=== PATIENT | male | born 1940 | race Caucasian/White ===

== ENCOUNTER → 2017-05-21 | Outpatient (CLI) | payer OTHER | LOC: RAD 08:30 | DX: M62.08 Separation of muscle (nontraumatic), other site (principal); K57.30 Diverticulosis of large intestine without perforation or abscess without bleeding; I25.10 Atherosclerotic heart disease of native coronary artery without angina pectoris; M16.0 Bilateral primary osteoarthritis of hip | CPT/HCPCS: 74176 ==

== ENCOUNTER 2017-10-06 03:49 | Inpatient (IN) | payer OTHER ==
[~2017-10-06] VITALS: Ht 167.6 cm; Wt 122.6 kg
[2017-10-06 04:30] LABS: HEMOGLOBIN 9.3 G/DL (12.5-16.6); MCH 28.2 PG (29.0-34.0); MCV 90.9 FL (86-99); PLATELET COUNT 185 K/uL (156-360); RBC DIS.WIDTH-SD 47.1 % (39-53); WHITE BLOOD COUNT 7.1 K/uL (4.1-10.2)
[2017-10-06 04:42] LABS: ALBUMIN 3.4 g/dL (3.2-4.8); CHLORIDE 99 mEq/L (99-109); POTASSIUM 3.8 mEq/L (3.7-5.4); SODIUM 138 mEq/L (136-147)
[2017-10-06 04:44] LABS: GLUCOSE 120 mg/dL (70-99)
[2017-10-06 04:45] LABS: TOTAL PROTEIN 6.4 g/dL (6.4-8.3)
[2017-10-06 04:46] LABS: TOTAL BILIRUBIN 0.5 mg/dL (0.0-1.0)
[2017-10-06 04:48] LABS: ALKALINE PHOSPHATASE 40 IU/L (3-129); CREATININE 1.6 mg/dL (0.6-1.3); GFR ESTIMATE (CALCULATED) 45 mL/min/ (58.99-99999)
[2017-10-06 04:49] LABS: UREA NITROGEN (BUN) 17 mg/dL (9-23)
[2017-10-06 04:50] LABS: AST (GOT) 11 IU/L (2-34)
[2017-10-06 04:51] LABS: ALT (GPT) 7 IU/L (3-49)
[2017-10-06 04:52] LABS: LIPASE 4 U/L (1.0-51.0); TROP-I INTERPRETATION NEGATIVE; TROPONIN-I 0.03 ng/mL (0.0-0.30)
[2017-10-06 10:40] LABS: TROP-I INTERPRETATION NEGATIVE; TROPONIN-I 0.02 ng/mL (0.0-0.30)
[2017-10-06] MEDS ORDERED: AMLODIPINE BESYL5 MG PO (12:05)
[2017-10-06] MEDS ORDERED: CYANOCOBALAM1000 MCG PO (12:06)
[2017-10-06] MEDS ORDERED: ASPIR-TRIN325 M1 PO (12:06)
[2017-10-06] MEDS ORDERED: FEOSOL325 MG PO (12:07)
[2017-10-06] MEDS ORDERED: FLEXI JOINT TA1 EACH PO (12:08)
[2017-10-06] MEDS ORDERED: FUROSEMIDE20 MG PO (12:08)
[2017-10-06] MEDS ORDERED: LASIX40 MG PO (12:09)
[2017-10-06] MEDS ORDERED: LASIX20 MG PO (12:10)
[2017-10-06] MEDS ORDERED: INCRUSE ELLI62.5 MCG IH (12:10)
[2017-10-06] MEDS ORDERED: LASIX40 MG/4 ML IM (12:12)
[2017-10-06] MEDS ORDERED: LOSARTAN POTASS50 MG PO (12:13)
[2017-10-06] MEDS ORDERED: LEXAPRO10 MG PO (12:13)
[2017-10-06] MEDS ORDERED: KLOR-CON M2020 MEQ PO (12:13)
[2017-10-06] MEDS ORDERED: POTASSIUM-9999 MG PO (12:14)
[2017-10-06] MEDS ORDERED: ADVAIR 250/501 DISK IH (12:14)
[2017-10-06] MEDS ORDERED: SENNA PLUS TAB1 EACH PO (12:15)
[2017-10-06] MEDS ORDERED: ATORVASTATIN CA10 MG PO (12:15)
[2017-10-06] MEDS ORDERED: PAIN RELIEVING TP (12:17)
[2017-10-06] MEDS ORDERED: DUONEB 2.5-0.5 M3 ML AEROSOL (12:18)
[2017-10-06] MEDS ORDERED: GERI-TUSSI100 MG/5 M PO (12:19)
[2017-10-06] MEDS ORDERED: FURO40I IM (12:20)
[2017-10-06 12:59] VITALS: BP 146/79
[2017-10-06 16:34] VITALS: BP 154/69
[2017-10-06 16:43] LABS: TROP-I INTERPRETATION NEGATIVE; TROPONIN-I 0.03 ng/mL (0.0-0.30)
[2017-10-06 19:25] VITALS: BP 128/76
[2017-10-07 00:27] VITALS: BP 127/69
[2017-10-07 05:08] VITALS: BP 144/74
[2017-10-07 08:30] VITALS: BP 127/66
[2017-10-07 09:09] LABS: CHLORIDE 98 mEq/L (99-109); POTASSIUM 4.5 mEq/L (3.7-5.4); SODIUM 137 mEq/L (136-147)
[2017-10-07 09:11] LABS: GLUCOSE 98 mg/dL (70-99)
[2017-10-07 09:14] LABS: CREATININE 1.4 mg/dL (0.6-1.3); GFR ESTIMATE (CALCULATED) 52 mL/min/ (58.99-99999)
[2017-10-07 09:15] LABS: UREA NITROGEN (BUN) 17 mg/dL (9-23)
[2017-10-07 11:55] VITALS: BP 138/66
[2017-10-07 15:46] VITALS: BP 138/71
[2017-10-07 19:00] VITALS: BP 133/65
[2017-10-08 00:29] VITALS: BP 128/66
[2017-10-08 05:07] VITALS: BP 117/62
[2017-10-08] MEDS ORDERED: LASIX20 MG PO (11:06)
[2017-10-08] MEDS ORDERED: PREDNISONE10 MG PO (11:11)
[2017-10-08] MEDS ORDERED: PREDNISONE50 MG PO (11:11)
[2017-10-08] MEDS ORDERED: PREDNISONE20 MG PO (11:11)
[2017-10-08 11:20] VITALS: BP 119/58
[2017-10-08 15:40] VITALS: BP 132/65
[2017-10-08 19:15] VITALS: BP 136/68
[2017-10-09] VITALS: BP 134/79
[2017-10-09 04:00] VITALS: BP 133/85
[2017-10-09 07:00] VITALS: BP 108/71
== END 2017-10-09 12:51 | DRG 308 ==
LOC: EME → EDBD 03:49 → EME 03:49 → EDOF 07:24 → ENRESERV 07:26 → 4SOUTH 12:44 → ENPENDDIS 10-09 11:47 → 4SOUTH 10-09 12:51
PROVIDERS: Emergency Medicine; Family Medicine; Nurse Practitioner Family
DX: I44.1 Atrioventricular block, second degree (principal); R07.89 Other chest pain; J96.00 Acute respiratory failure, unspecified whether with hypoxia or hypercapnia; I48.91 Unspecified atrial fibrillation; I25.10 Atherosclerotic heart disease of native coronary artery without angina pectoris; E86.0 Dehydration; R00.1 Bradycardia, unspecified; I95.9 Hypotension, unspecified; E66.2 Morbid (severe) obesity with alveolar hypoventilation; Z68.41 Body mass index [BMI] 40.0-44.9, adult; J44.9 Chronic obstructive pulmonary disease, unspecified; K31.84 Gastroparesis; I12.9 Hypertensive chronic kidney disease with stage 1 through stage 4 chronic kidney disease, or unspecified chronic kidney disease; N18.9 Chronic kidney disease, unspecified; G47.30 Sleep apnea, unspecified; I87.2 Venous insufficiency (chronic) (peripheral); D64.9 Anemia, unspecified; E78.5 Hyperlipidemia, unspecified; F03.90 Unspecified dementia, unspecified severity, without behavioral disturbance, psychotic disturbance, mood disturbance, and anxiety; K21.9 Gastro-esophageal reflux disease without esophagitis; Z66 Do not resuscitate; Z87.891 Personal history of nicotine dependence; F41.9 Anxiety disorder, unspecified; M19.90 Unspecified osteoarthritis, unspecified site; R25.1 Tremor, unspecified; R32 Unspecified urinary incontinence; R42 Dizziness and giddiness; R60.0 Localized edema
CPT/HCPCS: 71045; 78582; 80048; 80053; 83690; 84484; 85027; 85379; 93005; 93306; 93970; 94640; 94799; 97530 GO; 99281; 99285; A9540; A9567; J1650; J1940; J2920; J7030; J7512; S0028